=== PATIENT | female | born 1955 | race Caucasian/White ===

== ENCOUNTER 2020-05-22 14:43 | Inpatient (IN) | payer BC, OTHER ==
[~2020-05-22] VITALS: Ht 165.1 cm; Wt 68.0 kg
[~2020-05-22 14:43] MED LIST: GLUC1TAB PO; MAGNESIUM; MULT-208 PO; NONE PER PT; VITA100022 PO; VITA400C43 PO; VITAMIN D PO
--- NOTE | 2020-05-22 14:43 | NUR ---
INITIAL PT CONTACT. PT PRESENTS TO THE ED C/O LEFT WRIST PAIN FOLLOWING A GLF. PT STATES SHE WAS HOLDING HER GRANDSON AND DID NOT WANT TO FALL ON HIM SO HER CAUGHT HER FALL WITH HER LEFT HAND. PT EXPERIENCED IMMEDIATE 10/10, + DEFORMITY. PT DENIES LOC, NECK PAIN, NUMBNESS OR TINGLING TO THE LEFT WRIST. CSM INTACT. PT PROVIDED A PILLOW AND ICE BAG FOR ELEVATION AND COMFORT OF THE EXTREMITY. ERP AT BEDSIDE. PT REQUESTS PAIN MEDICATION, ERP AWARE. NO ADDITIONAL NEEDS AT THIS TIME, CALL LIGHT WITHIN REACH.
[2020-05-22] MEDS ORDERED: MORPHINE SULFATE 4 MG/ML, 1ML ONE (15:04)
[2020-05-22] MEDS ORDERED: ONDANSETRON 2MG/ML, 2ML ONE (15:04)
[2020-05-22] MEDS ORDERED: ONDANSETRON 2MG/ML, 2ML IVPush ONE (15:30)
[2020-05-22] MEDS ORDERED: CEFAZOLIN PMX 1GM/50ML 50 ML ONE (15:30)
[2020-05-22] MEDS ORDERED: CEFAZOLIN PMX 1GM/50ML 50 ML IV ONE (15:30)
[2020-05-22] MEDS ORDERED: MORPHINE SULFATE 4 MG/ML, 1ML IVPush ONE (15:30)
[2020-05-22] MEDS ORDERED: LEVO50TA PO (15:58)
--- NOTE | 2020-05-22 16:07 | NUR ---
PT UPRIGHT ON GURNEY AWAKE WITH C/O INCREASING PAIN- PA DOUG AWARE, PT RESPONDS APPROP TO STAFF, COMFORT MEASURES PROVIDED, AT BS, CALL LIGHT WITHIN REACH.
[2020-05-22] MEDS ORDERED: HYDROmorphone 1 MG/ML, 1ML INJ ONE ×2 (16:28→23:52)
[2020-05-22] MEDS ORDERED: CEFTRIAXONE PMX 1GM/50ML 50 ML ONE (16:28)
[2020-05-22] MEDS: CEFTRIAXONE PMX 1GM/50ML 50 ML IV ONE ×2 (16:30→16:32)
[2020-05-22] MEDS ORDERED: HYDROmorphone 1 MG/ML, 1ML INJ IV ONE ×2 (16:30→18:00)
[2020-05-22] MEDS ORDERED: [UNRECOGNIZED DRUG - CODE] PO (16:49)
[2020-05-22] MEDS ORDERED: INDA2.5T PO (16:49)
[2020-05-22] MEDS ORDERED: ATOR40TA78 PO (16:49)
[2020-05-22] MEDS ORDERED: ACET125T2 PO (16:49)
[2020-05-22] MEDS ORDERED: SPIR25TA5 PO (16:49)
--- NOTE | 2020-05-22 17:03 | NUR ---
PT UPRIGHT ON GURNEY. REQUESTING MORE SUPPORT FOR ARM, PILLOWS PROVIDED. PT STATES "THAT IS A LOT BETTER". PT PROVIDED WAR SASHAEY. DENIES ADDITIONAL NEEDS AT THIS TIME. CALL LIGHT WITHIN REACH.
--- NOTE | 2020-05-22 17:35 | NUR ---
PURE WICK PLACED, PT ABLE TO VOID. APPROX 400ML. TOLERATED WELL.
[2020-05-22] MEDS ORDERED: EPINEPHRINE 1 MG/ML, 1ML ONE (17:51)
[2020-05-22] MEDS ORDERED: BUPIVACAINE/PF 0.5% ONE (17:51)
[2020-05-22] MEDS ORDERED: HYDROmorphone 2 MG/ML, 1ML ONE (17:51)
--- NOTE | 2020-05-22 18:01 | NUR ---
Pt to be admitted to OR. Report called to PRE-OP NURSE.
[2020-05-22] MEDS ORDERED: FENTANYL PF 250 MCG/5ML ONE (18:09)
[2020-05-22] MEDS ORDERED: MIDAZOLAM 1 MG/ML, 2ML ONE (18:09)
[2020-05-22] MEDS ORDERED: PROPOFOL 50 ML ONE ×4 (18:09→21:46)
[2020-05-22] MEDS ORDERED: DOCUSATE 100 MG CAPSULE PO PRN (18:30)
[2020-05-22] MEDS ORDERED: ACETAMINOPHEN 325 MG TABLET PO PRN ×2 (18:30→19:00)
[2020-05-22] MEDS ORDERED: BISACODYL 10 MG SUPP PR PRN (18:30)
[2020-05-22] MEDS ORDERED: CEFAZOLIN 1,000 MG ONE (18:40)
[2020-05-22] MEDS ORDERED: DEXAMETHASONE 4 MG/ML, 1ML ONE (18:40)
[2020-05-22] MEDS ORDERED: PROMETHAZINE 25 MG/ML, 1ML IVPush PRN (19:00)
[2020-05-22] MEDS ORDERED: MEPERIDINE/PF 25MG/0.5ML IVPush PRN (19:00)
[2020-05-22] MEDS ORDERED: EPHEDRINE 50 MG/ML, 1ML IM PRN (19:00)
[2020-05-22] MEDS ORDERED: LABETALOL 5MG/ML, 20ML IV PRN (19:00)
[2020-05-22] MEDS ORDERED: OXYcodone 5 MG/5 ML ORAL.SOL UDC PO PRN (19:00)
[2020-05-22] MEDS ORDERED: FENTANYL PF 100 MCG/2ML IV PRN (19:00)
[2020-05-22] MEDS ORDERED: DIAZEPAM 5 MG/ML, 2ML IVPush PRN (19:00)
[2020-05-22] MEDS ORDERED: DIPHENHYDRAMINE 50 MG/ML, 1ML IVPush PRN (19:00)
[2020-05-22] MEDS ORDERED: EPHEDRINE 50 MG/ML, 1ML IVPush PRN (19:00)
[2020-05-22] MEDS ORDERED: ONDANSETRON 2MG/ML, 2ML IVPush PRN (19:00)
[2020-05-22] MEDS ORDERED: HYDROmorphone 1 MG/ML, 1ML INJ IVPush PRN (19:00)
[2020-05-22] MEDS: ATORVASTATIN 10 MG TABLET PO SCH (21:00)
[2020-05-22] MEDS: SPIRONOLACTONE 25 MG TABLET PO SCH (21:00)
[2020-05-22] MEDS ORDERED: MEPERIDINE/PF 25MG/ML,1ML ONE (22:54)
[2020-05-22] MEDS ORDERED: OXYcodone 5 MG/5 ML ORAL.SOL UDC ONE (23:30)
[2020-05-22] MEDS: HYDROmorphone 1 MG/ML, 1ML INJ IVPush PRN ×2 (23:53→23:58)
[2020-05-23 00:39] VITALS: BP 108/60
[2020-05-23 01:21] VITALS: BP 103/58
[2020-05-23] MEDS: CEFAZOLIN PMX 2GM/50ML 50 ML IVPB SCH ×3 (03:05→20:43)
[2020-05-23] MEDS: OXYcodone IR 5MG TABLET PO PRN ×5 (03:11→20:53)
[2020-05-23] MEDS: POTASSIUM CITRATE MC SCH ×3 (04:30→20:30)
[2020-05-23 05:16] VITALS: BP 102/55
[2020-05-23 05:52] LABS: BASOPHILS % (AUTO) 0 % (0-1); EOSINOPHILS % (AUTO) 0 % (1-7); LYMPHOCYTES % (AUTO) 5 % (22-44); MEAN CORPUSCULAR HEMOGLOBIN 31.2 pg (27.0-34.8); MEAN CORPUSCULAR HGB CONC 33.7 g/dL (32.4-35.8); MEAN PLATELET VOLUME 7.8 fL (7.4-10.4); MONOCYTES % (AUTO) 2 % (2-9); NEUTROPHILS % (AUTO) 93 % (42-75); PLATELET COUNT 280 x10^3/uL (130-400); RED BLOOD COUNT 4.69 x10^6/uL (3.82-5.3); RED CELL DISTRIBUTION WIDTH 13.3 % (9.6-15.2)
[2020-05-23 05:58] LABS: MD NO
[2020-05-23] MEDS ORDERED: LEVOTHYROXINE 50 MCG TABLET PO SCH (06:00)
[2020-05-23] MEDS: morphine SULFATE 10 MG/ML, 1ML IVPush PRN ×4 (06:02→19:03)
[2020-05-23 06:03] LABS: ANION GAP 10 mmol/L (5-15); CHLORIDE 108 mmol/L (98-107)
[2020-05-23 06:05] LABS: CREATININE 1.19 mg/dL (0.55-1.02)
[2020-05-23 07:07] VITALS: BP 95/54
[2020-05-23] MEDS: SPIRONOLACTONE 25 MG TABLET PO SCH ×2 (09:28→21:23)
[2020-05-23] MEDS: ONDANSETRON 2MG/ML, 2ML IVPush PRN ×2 (09:40→16:54)
[2020-05-23] MEDS: SENNA/DOCUSATE TABLET PO SCH (09:40)
[2020-05-23] MEDS ORDERED: LORATADINE 10 MG TABLET PO PRN (10:00)
[2020-05-23] MEDS: INDAPAMIDE 2.5 MG TABLET PO SCH (12:09)
[2020-05-23] MEDS: LEVOTHYROXINE 75 MCG TABLET PO SCH (12:27)
[2020-05-23] MEDS: POTASSIUM CHLORIDE 20 MEQ TAB.ER.PRT PO SCH (13:20)
[2020-05-23 14:05] VITALS: BP 128/61
[2020-05-23] MEDS ORDERED: POTASSIUM CHLORIDE 10 MEQ TABLET.ER PO SCH (17:00)
[2020-05-23 20:22] VITALS: BP 104/62
[2020-05-23] MEDS: ATORVASTATIN 10 MG TABLET PO SCH (21:23)
[2020-05-24] MEDS: morphine SULFATE 10 MG/ML, 1ML IVPush PRN ×5 (00:14→20:59)
[2020-05-24] MEDS: ONDANSETRON 2MG/ML, 2ML IVPush PRN ×2 (00:14→22:12)
[2020-05-24 00:31] VITALS: BP 100/59
[2020-05-24] MEDS: OXYcodone IR 5MG TABLET PO PRN ×2 (01:10→22:13)
[2020-05-24] MEDS: POTASSIUM CITRATE MC SCH ×3 (04:06→20:25)
[2020-05-24] MEDS: LEVOTHYROXINE 75 MCG TABLET PO SCH (05:22)
[2020-05-24] MEDS ORDERED: LEVOTHYROXINE 75 MCG TABLET PO SCH (06:00)
[2020-05-24] MEDS: SPIRONOLACTONE 25 MG TABLET PO SCH ×2 (07:58→20:27)
[2020-05-24] MEDS: POTASSIUM CHLORIDE 20 MEQ TAB.ER.PRT PO SCH (07:58)
[2020-05-24] MEDS: SENNA/DOCUSATE TABLET PO SCH (07:59)
[2020-05-24] MEDS: INDAPAMIDE 2.5 MG TABLET PO SCH (07:59)
[2020-05-24] MEDS ORDERED: POTASSIUM CHLORIDE 20 MEQ TAB.ER.PRT PO SCH (08:00)
[2020-05-24 09:07] VITALS: BP 100/58
[2020-05-24] MEDS ORDERED: FENTANYL PF 250 MCG/5ML ONE (09:28)
[2020-05-24] MEDS ORDERED: MIDAZOLAM 1 MG/ML, 2ML ONE (09:28)
[2020-05-24] MEDS ORDERED: EPINEPHRINE 1 MG/ML, 1ML ONE (10:33)
[2020-05-24] MEDS ORDERED: LIDOCAINE/PF 1%, 30ML ONE (10:33)
[2020-05-24] MEDS ORDERED: BUPIVACAINE/PF 0.5% ONE (10:33)
[2020-05-24] MEDS ORDERED: CHLORHEXIDINE 15 ML UDC ONE (10:35)
[2020-05-24] MEDS ORDERED: CHLORHEXIDINE 15 ML UDC MM ONE (11:00)
[2020-05-24] MEDS ORDERED: LORazepam 2 MG/ML, 1ML IVPush PRN (12:30)
[2020-05-24] MEDS ORDERED: PROMETHAZINE 25 MG SUPP PR PRN (12:30)
[2020-05-24] MEDS ORDERED: HYDROmorphone 1 MG/ML, 1ML INJ IVPush PRN (12:30)
[2020-05-24] MEDS ORDERED: PROMETHAZINE 25 MG/ML, 1ML IVPush PRN (12:30)
[2020-05-24] MEDS ORDERED: OXYcodone 5 MG/5 ML ORAL.SOL UDC PO PRN (12:30)
[2020-05-24] MEDS ORDERED: FENTANYL PF 100 MCG/2ML IV PRN (12:30)
[2020-05-24] MEDS ORDERED: ONDANSETRON 2MG/ML, 2ML IVPush PRN (12:30)
[2020-05-24] MEDS ORDERED: ACETAMINOPHEN 325 MG TABLET PO PRN (12:30)
[2020-05-24] MEDS ORDERED: METHOCARBAMOL 1,000 MG in DEXTROSE 5% 100 ML IV PRN (12:30)
[2020-05-24] MEDS ORDERED: ROCURONIUM 10MG/ML,5ML ONE (12:52)
[2020-05-24] MEDS ORDERED: DEXAMETHASONE 4 MG/ML, 1ML ONE (12:52)
[2020-05-24] MEDS ORDERED: NEOSTIGMINE 1 MG/ML, 10ML ONE (12:52)
[2020-05-24] MEDS ORDERED: ONDANSETRON 2MG/ML, 2ML ONE (12:52)
[2020-05-24] MEDS ORDERED: GLYCOPYRROLATE 0.2MG/1ML, 5ML ONE (12:52)
[2020-05-24] MEDS ORDERED: CEFAZOLIN 1,000 MG ONE (12:52)
[2020-05-24] MEDS ORDERED: PROPOFOL 10 MG/ML, 20ML ONE (12:52)
[2020-05-24] MEDS ORDERED: SUCCINYLCHOLINE 20 MG/ML, 10ML ONE (12:52)
[2020-05-24 14:00] VITALS: BP 115/61
[2020-05-24 19:29] VITALS: BP 128/66
[2020-05-24] MEDS: CEFAZOLIN PMX 2GM/50ML 50 ML IVPB SCH (19:55)
[2020-05-24] MEDS: ATORVASTATIN 10 MG TABLET PO SCH (20:28)
[2020-05-24] MEDS ORDERED: NITROGLYCERIN 0.4 MG BOTTLE (25 TABS) SL ONE (21:00)
[2020-05-24 21:19] LABS: TROPONIN I < 0.015 ng/mL (0.000-0.045)
[2020-05-25 00:36] VITALS: BP 104/59
[2020-05-25] MEDS: morphine SULFATE 10 MG/ML, 1ML IVPush PRN (00:53)
[2020-05-25] MEDS: CEFAZOLIN PMX 2GM/50ML 50 ML IVPB SCH (03:28)
[2020-05-25 03:51] LABS: TROPONIN I < 0.015 ng/mL (0.000-0.045)
[2020-05-25 03:55] VITALS: BP 94/51
[2020-05-25] MEDS: ONDANSETRON 2MG/ML, 2ML IVPush PRN (04:26)
[2020-05-25] MEDS: POTASSIUM CITRATE MC SCH ×2 (04:26→08:27)
[2020-05-25] MEDS: OXYcodone IR 5MG TABLET PO PRN ×2 (04:28→10:20)
[2020-05-25 06:34] VITALS: BP 92/53
[2020-05-25] MEDS: LEVOTHYROXINE 75 MCG TABLET PO SCH (06:34)
[2020-05-25 06:42] VITALS: BP 104/51
[2020-05-25] MEDS: SPIRONOLACTONE 25 MG TABLET PO SCH (08:27)
[2020-05-25] MEDS: SENNA/DOCUSATE TABLET PO SCH (08:27)
[2020-05-25] MEDS: POTASSIUM CHLORIDE 20 MEQ TAB.ER.PRT PO SCH (08:27)
[2020-05-25] MEDS: INDAPAMIDE 2.5 MG TABLET PO SCH (08:27)
[2020-05-25 08:57] LABS: TROPONIN I < 0.015 ng/mL (0.000-0.045)
[2020-05-25] MEDS ORDERED: OXYC5TAB3 PO (09:48)
[2020-05-25] MEDS ORDERED: ONDA4TAB7 PO (09:52)
[2020-05-25] MEDS ORDERED: DOCU-131 PO (10:21)
[2020-05-25 10:47] VITALS: BP 122/71
== END 2020-05-25 11:05 | disposition home or self-care (01) | DRG 512 ==
LOC: ED 16:03 → 4NE 23:52
PROVIDERS: ADMIT Family Medicine; ATTEND Family Medicine
PROC: 0PSL04Z Reposition Left Ulna with Internal Fixation Device, Open Approach (ICD-10-PCS; principal; 2020-05-24 11:00)
DX: S52.202B Unspecified fracture of shaft of left ulna, initial encounter for open fracture type I or II (principal); S52.572A Other intraarticular fracture of lower end of left radius, initial encounter for closed fracture; E03.9 Hypothyroidism, unspecified; E78.5 Hyperlipidemia, unspecified; G89.11 Acute pain due to trauma; I10 Essential (primary) hypertension; W01.0XXA Fall on same level from slipping, tripping and stumbling without subsequent striking against object, initial encounter; Z20.828 Contact with and (suspected) exposure to other viral communicable diseases; Z90.710 Acquired absence of both cervix and uterus; Z88.8 Allergy status to other drugs, medicaments and biological substances; Y93.89 Activity, other specified; Y92.89 Other specified places as the place of occurrence of the external cause; Y99.8 Other external cause status
CPT/HCPCS: 36415; 73100; 76000; 96365; 96375; 99285; S0020; 71045; 80048; 84484; 85025; 87635; 93005; C1713; G0378; J0171; J0690; J0696; J1100; J1170; J2175; J2250; J2405; J2704; J2710; J3010; C1762; J0330; J2270